=== PATIENT | male | born 2000 | race Caucasian/White ===

== ENCOUNTER 2020-06-13 09:24 | Emergency (ER) | payer MEDICAID ==
[~2020-06-13] VITALS: Ht 170.2 cm; Wt 66.7 kg
[2020-06-13 09:26] VITALS: BP 143/92
--- NOTE | 2020-06-13 09:33 | NUR ---
PT AMB TO BED 12.
[2020-06-13] MEDS ORDERED: LORazepam 1 MG TAB PO ONE (09:40)
--- NOTE | 2020-06-13 09:51 | NUR ---
19 YEAR OLD MALE COMPLAINS OF HAVING PANIC ATTACK PRIOR TO ARRIVAL. PT STATES THAT HE IS FEELING MUCH BETTER PRIOR TO COMING AND ANXIETY HAS COME DOWN ALOT. PT STATES SOMETIMES HE GETS PANIC ATTACKS, HISTORY OF ANXIETY. PT AOX4, BREATHING EVEN AND UNLABORED, SKIN WARM AND DRY. BED IN LOWEST POSITION, LOCKED, BED RAIL UPX1. PMH - ANXIETY ALLERGIES - NKA
--- NOTE | 2020-06-13 09:53 | NUR ---
PT REFUSED MEDICATION, STATES HE DOES NOT FEEL HE NEEDS IT
--- NOTE | 2020-06-13 10:00 | NUR ---
Patient discharged with v/s stable. Written and verbal after care instructions about anxiety and panic attacks given and explained. Patient alert, oriented and verbalized understanding of instructions. Ambulatory with steady gait. All questions addressed prior to discharge. ID band removed. Patient advised to follow up with PMD. Rx of atarax given. Patient educated on indication of medication including possible reaction and side effects. Opportunity to ask questions provided and answered.
[2020-06-13 10:08] VITALS: BP 143/92
== END 2020-06-13 10:00 | disposition home or self-care (01) ==
LOC: MED 09:24
DX: F41.9 Anxiety disorder, unspecified (principal)
CPT/HCPCS: 93005; 99283